=== PATIENT | female | born 1980 | race Caucasian/White ===

== ENCOUNTER 2017-09-15 11:43 | Emergency (ER) | payer SELFPAY ==
--- NOTE | 2017-09-15 12:07 | ED Physician Documentation ---
General Adult - HISTORIAN Historian: patient - HPI Stated Complaint: rash/inflamation R arm Chief Complaint: General Adult Onset: days ago (1) Timing: still present Severity: moderate Further Comments: yes (Pt is a 37 yo female with a rash on her L upper arm that has waxed and waned over the past week. Pt has a hx DVT and protein C deficiency, but she says that this does not feel like a DVT and is sometimes pruritic. No fever, n/v, or systemic sx.) - ROS CONST: no problems EYES/ENT: none CVS/RESP: none GI/: none MS/SKIN/LYMPH: rash - PAST HX Past History: other (Protein C deficiency, DVT) Allergies/Adverse Reactions: Allergies Allergy/AdvReac Type Severity Reaction Status Date / Time mupirocin [From Bactroban] Allergy Intermediate Rash Verified 09/15/17 11:59 sulfamethoxazole Allergy Intermediate Rash Verified 09/15/17 11:59 [From Bactrim] trimethoprim [From Bactrim] Allergy Intermediate Rash Verified 09/15/17 11:59 Home Medications: Ambulatory Orders Medication Instructions Recorded Rivaroxaban [Xarelto] 20 mg PO D 04/15/16 Cephalexin [Keflex] 500 mg PO Q8H #30 capsule 09/15/17 - SOCIAL HX Smoking History: non-smoker - FAMILY HX Family History: No - VITAL SIGNS Vital Signs: Vital Signs Temp Pulse Resp BP Pulse Ox 125/83 04/29/16 23:25 - REVIEWED ASSESSMENTS Nursing Assessment Reviewed: Yes Vitals Reviewed: Yes Progress - Progress Progress: Rx Keflex 500 mg po tid x 10 days. Pt will return to ER if condition worsens or she has new sx or concerns. General Adult Physical Exam - PHYSICAL EXAM GENERAL APPEARANCE: no distress EENT: pharynx normal NECK: normal inspection, supple RESPIRATORY: no resp distress, chest non-tender, breath sounds normal CVS: reg rate & rhythm, heart sounds normal BACK: normal inspection, no CVA tenderness SKIN: other (faint erythematous patch on anterior upper arm, 10 cm length, slight soreness) EXTREMITIES: other (faint erythematous patch on anterior upper arm, 10 cm length , slight soreness) NEURO: oriented X3, motor nml, sensation nml Discharge Clincal Impression: possible early cellulitis Prescriptions: Cephalexin [Keflex] 500 mg PO Q8H #30 capsule Referrals: Elle Gee MD [Primary Care Provider] - Condition: Good Disposition: 01 HOME, SELF-CARE Decision to Admit: NO Decision Time: 12:07
[2017-09-15 12:10] VITALS: BP 118/73
== END 2017-09-15 12:15 | disposition home or self-care (01) ==
LOC: ED 11:43
DX: R21 Rash and other nonspecific skin eruption (principal)
CPT/HCPCS: 99282

== ENCOUNTER 2017-10-29 21:10 | Emergency (ER) | payer BC, OTHER ==
--- NOTE | 2017-10-29 21:31 | ED Physician Documentation ---
Fall - HISTORIAN Historian: patient, child - HPI Stated Complaint: Tailbone pain s/p fall Chief Complaint: Fall Additional Information: going down stairs fell sitting posn w/ pain low sacrum 8 days ago - got worse sun - worse [place] at park-pain persists. Context: slipped, lost balance r: moderate Associated Symptoms:: no loss of consciousness Location of Pain/Injury: denies: head, neck, face, chest Injury to Right Extremity: none Injury to Left Extremity: none - ROS CONST: no problems NEURO: denies: dizziness EYES/ENT: none CVS/RESP: none - PAST HX Past History: none (PROTEIN C DEFICIENCY - on ZARELTO) Allergies/Adverse Reactions: Allergies Allergy/AdvReac Type Severity Reaction Status Date / Time mupirocin [From Bactroban] Allergy Intermediate Rash Verified 10/29/17 21:28 sulfamethoxazole Allergy Intermediate Rash Verified 10/29/17 21:28 [From Bactrim] trimethoprim [From Bactrim] Allergy Intermediate Rash Verified 10/29/17 21:28 Home Medications: Ambulatory Orders Medication Instructions Recorded Rivaroxaban [Xarelto] 20 mg PO D 04/15/16 - SOCIAL HX Smoking History: non-smoker Alcohol Use: rarely Drug Use: none - FAMILY HX Family History: other (mother had protein c def) - VITAL SIGNS Vital Signs: Vital Signs Temp Pulse Resp BP Pulse Ox 74 16 116/93 100 10/29/17 21:10 10/29/17 21:10 10/29/17 21:10 10/29/17 21:10 - REVIEWED ASSESSMENTS Nursing Assessment Reviewed: Yes Vitals Reviewed: Yes ED Results Lab/Radiology - Radiology Radiology Impressions: possible fracture lower sacrum--rad iologists says no Fall Physical Exam - Physical Exam General Appearance: mild distress Head: non-tender Neck: non-tender ENT: nml external inspection Resp/CVS: chest non-tender Abdomen: soft, non-tender Neuro: oriented x3, sensation nml, motor nml, mood/affect nml Skin: color nml, no rash. No: cyanosis, diaphoresis, pallor, ecchymosis Back: normal inspection, other (tenderness is lower third opf sacrum mid line) Joint: joints nml - Xander Coma Score Eyes Open: Spontaneous Speech: Oriented Motor: Extensor Response Discharge Clincal Impression: fall w/ coccydynia-sacral contusion Referrals: Elle Gee MD [Primary Care Provider] - 2 Days Comments: use soft pillow - foam rubber cushion plus ibu 600 tid Condition: Good Decision to Admit: NO Decision Time: 22:43
[2017-10-29 23:01] VITALS: BP 118/58
--- NOTE | 2017-10-30 05:31 | Diagnostic Imaging Report ---
ANNMARIE VERDUZCO [facility] [address] [facility].[address] [address] Report Submission Date: October 29, 2017 10:10:09 PM CDT Patient Study Name: LISETH KHALIL Date: October 29, 2017 9:47:25 PM CDT Modality Type: DX Gender: F Description: SPINE : 76 Institution: [facility] Physician: ANNMARIE VERDUZCO 3 views of the sacrum and coccyx Clinical history: FALL ON STAIRS ON 10/21/2017 Findings: Examination sacrum and coccyx in AP, angled and lateral views fails to demonstrate evidence of fracture. The sacroiliac joints are symmetric. Sacral foramina appear preserved. There is no lytic or blastic lesion. Impression: 1. No fracture. Electronically signed on October 29, 2017 10:10:09 PM CDT by: Earnest PEPPER
== END 2017-10-29 22:50 | disposition home or self-care (01) ==
LOC: ED 21:10
DX: S30.0XXA Contusion of lower back and pelvis, initial encounter (principal); W10.8XXA Fall (on) (from) other stairs and steps, initial encounter; Y93.9 Activity, unspecified; Y92.9 Unspecified place or not applicable
CPT/HCPCS: 72220; 99283

== ENCOUNTER 2018-07-10 07:33 | Emergency (ER) | payer BC, OTHER ==
[2018-07-10] MEDS ORDERED: DIAZEPAM 5 MG TABLET PO ONE ×2 (07:49→07:51)
[2018-07-10] MEDS ORDERED: KETOROLAC TROMETHAMINE 60 MG/2 ML VIAL IM ONE (07:49)
[2018-07-10] MEDS ORDERED: KETOROLAC TROMETHAMINE 60 MG/2 ML VIAL ONE (07:51)
--- NOTE | 2018-07-10 07:52 | ED Physician Documentation ---
General Adult - HISTORIAN Historian: patient - HPI Stated Complaint: L arm pain/tingling in hand Chief Complaint: General Adult Onset: hours Timing: still present Severity: moderate Further Comments: yes (Pt is a 38 yo female with pain in her L arm and numbness in her L small finger. Pt had some sx yesterday, but today woke with the numbness. Sx are exacerbated by shoulder movement, lifting her arm over her head. Pt was not involved in any trauma. Sx occurred spontaneously.) - ROS CONST: no problems EYES/ENT: none CVS/RESP: none GI/: none MS/SKIN/LYMPH: other (pain in L arm, numbness in L small finger) NEURO/PSYCH: numbness (L small finger) - PAST HX Past History: other (BTL, cholecystectomy) Allergies/Adverse Reactions: Allergies Allergy/AdvReac Type Severity Reaction Status Date / Time mupirocin [From Bactroban] Allergy Intermediate Rash Verified 07/10/18 07:58 sulfamethoxazole Allergy Intermediate Rash Verified 07/10/18 07:58 [From Bactrim] trimethoprim [From Bactrim] Allergy Intermediate Rash Verified 07/10/18 07:58 Home Medications: Ambulatory Orders Medication Instructions Recorded Rivaroxaban [Xarelto] 20 mg PO D 04/15/16 - SOCIAL HX Smoking History: non-smoker - FAMILY HX Family History: No - VITAL SIGNS Vital Signs: Vital Signs Temp Pulse Resp BP Pulse Ox 83 16 112/86 100 07/10/18 07:43 07/10/18 07:43 07/10/18 07:43 07/10/18 07:43 - REVIEWED ASSESSMENTS Nursing Assessment Reviewed: Yes Vitals Reviewed: Yes Progress - Progress Progress: Toradol 60 mg IM Valium 5 mg po in ER improved ED Results Lab/Radiology - Orders Orders: ED Orders Category Date Time Status Diazepam [Valium] Med 07/10/18 07:49 Once 5 mg PO NOW ONE Ketorolac Tromethamine [Toradol] Med 07/10/18 07:49 Once 60 mg IM NOW ONE General Adult Physical Exam - PHYSICAL EXAM GENERAL APPEARANCE: no distress EENT: eye inspection normal NECK: normal inspection, supple RESPIRATORY: no resp distress, chest non-tender, breath sounds normal CVS: reg rate & rhythm, heart sounds normal BACK: normal inspection, no CVA tenderness SKIN: warm/dry, normal color EXTREMITIES: normal range of motion, no evidence of injury NEURO: oriented X3, motor nml, other (c/o L small finger numbness) Discharge Clincal Impression: Radiculopathy Qualifiers: Spinal region: unspecified Qualified Code(s): M54.10 - Radiculopathy, site unspecified Referrals: Elle Gee MD [Primary Care Provider] - Condition: Good Disposition: 01 HOME, SELF-CARE Decision to Admit: NO Decision Time: 08:30
[2018-07-10 08:29] VITALS: BP 117/85
== END 2018-07-10 08:28 | disposition home or self-care (01) ==
LOC: ED 07:33
DX: M54.10 Radiculopathy, site unspecified (principal)
CPT/HCPCS: 96372; 99282; 99283; J1885

== ENCOUNTER 2018-09-07 06:26 | Emergency (ER) | payer OTHER ==
--- NOTE | 2018-09-07 06:46 | ED Physician Documentation ---
Sore Throat/Dental Pain - HISTORIAN Historian: patient - HPI Stated Complaint: sore throat Chief Complaint: Sore Throat Additional Information: Patient presents to ED with sore throat starting last night. Denies any other symptoms. Onset: hours (24) Associated Symptoms: denies: fever - ROS CONST: no problems CVS/RESP: none GI/: denies: nausea, vomiting MS/SKIN/LYMPH: denies: muscle aches NEURO/PSYCH: denies: headache - PAST HX Past History: none Other History: none Allergies/Adverse Reactions: Allergies Allergy/AdvReac Type Severity Reaction Status Date / Time mupirocin [From Bactroban] Allergy Intermediate Rash Verified 07/10/18 07:58 sulfamethoxazole Allergy Intermediate Rash Verified 07/10/18 07:58 [From Bactrim] trimethoprim [From Bactrim] Allergy Intermediate Rash Verified 07/10/18 07:58 Home Medications: Ambulatory Orders Medication Instructions Recorded Rivaroxaban [Xarelto] 20 mg PO D 04/15/16 Cefdinir [Omnicef] 300 mg PO BID #20 capsule 09/07/18 - SOCIAL HX Smoking History: non-smoker Alcohol Use: none Drug Use: none - FAMILY HX Family History: No - VITAL SIGNS Vital Signs: Vital Signs Temp Pulse Resp BP Pulse Ox 117/85 07/10/18 08:28 - REVIEWED ASSESSMENTS Nursing Assessment Reviewed: Yes Vitals Reviewed: Yes Sore throat Physical Exam - EXAM General Appearance: alert Eyes: PERRL Mouth/Throat: pharyngeal erythema Ear/Nose: nml inspection Respiratory: no resp. distress CVS: reg. rate & rhythm Abdomen: soft Extremities: non-tender Skin: warm/dry Neuro/Psych: oriented x3, mood/affect nml Discharge Clincal Impression: Strep pharyngitis Prescriptions: Cefdinir [Omnicef] 300 mg PO BID #20 capsule Referrals: Elle Gee MD [Primary Care Provider] - 2 Days Additional Instructions: 1. Tylenol and/or Ibuprofen as needed for pain/fever 2. Take antibiotics until gone 3. Follow up with PCP within 1 week 4. Return to ER for new or worsening symptoms Condition: Stable Disposition: 01 HOME, SELF-CARE Decision to Admit: NO Date of Decison to Admit: 09/07/18 Decision Time: 06:54
[2018-09-07 06:51] VITALS: BP 119/86
== END 2018-09-07 07:00 | disposition home or self-care (01) ==
LOC: ED 06:26
DX: J02.0 Streptococcal pharyngitis (principal)
CPT/HCPCS: 87880; 99283